=== PATIENT | male | born 1970 | race Caucasian/White ===

== ENCOUNTER 2024-12-31 14:01 | Outpatient (CLI) | payer MEDICAID, SELFPAY ==
--- NOTE | 2024-12-31 14:13 | XRR_ITS ---
PROCEDURE INFORMATION: Exam: XR Left Elbow Exam date and time: 12/31/2024 2:30 PM Age: 54 years old Clinical indication: Injury or trauma; Other: Bumped elbow; Blunt trauma (contusions or hematomas); Left; Injury details: Bumed posterior side of elbow and swelling; Additional info: Pain in left elbow TECHNIQUE: Imaging protocol: Radiologic exam of the left elbow. Views: 3 or more views. COMPARISON: No relevant prior studies available. FINDINGS: Bones/joints: No acute fracture or dislocation. Spurring along the olecranon process. Soft tissues: Normal. XR/XR elbow LT min 3V* [id number] IMPRESSION: No acute osseous findings.
== END 2024-12-31 14:02 | disposition home or self-care (01) ==
PROVIDERS: PCP Nurse Practitioner Family; Visit Provider Nurse Practitioner Family
DX: M25.522 Pain in left elbow (principal); M77.8 Other enthesopathies, not elsewhere classified
CPT/HCPCS: 73080

== ENCOUNTER → 2025-01-24 14:56 | Outpatient (BNVA) | payer MEDICAID, SELFPAY | PROVIDERS: PCP Nurse Practitioner Family; Visit Provider Orthopaedic Surgery | DX: M25.522 Pain in left elbow (principal); M70.22 Olecranon bursitis, left elbow; F90.9 Attention-deficit hyperactivity disorder, unspecified type; F98.8 Other specified behavioral and emotional disorders with onset usually occurring in childhood and adolescence | CPT/HCPCS: 73080 ==

== ENCOUNTER 2025-04-03 12:14 | Outpatient (CLI) | payer MEDICAID, SELFPAY ==
--- NOTE | 2025-04-03 12:24 | XRR_ITS ---
PROCEDURE INFORMATION: Exam: XR Lumbosacral Spine Exam date and time: 04/03/2025 12:48 PM Age: 54 years old Clinical indication: Low back pain; Additional info: Chronic back pain TECHNIQUE: Imaging protocol: Radiologic exam of the lumbosacral spine. Views: 6 or more views. Including flexion and extension views. COMPARISON: CR XR hip BI m 5V wo/w pel* [id number] 04/03/2025 12:48 PM FINDINGS: Bones/joints: There is degenerative disc disease along with vertebral body spurring noted at the L5-S1 level(s).With flexion and extension there is no evidence of significant instability. No acute fracture or subluxation noted. Soft tissues: Unremarkable. XR/XR lumbar spine 6V w f/e [id number] IMPRESSION: 1. No acute findings. 2. Degenerative disc disease at L5-S1
--- NOTE | 2025-04-03 12:24 | XRR_ITS ---
PROCEDURE INFORMATION: Exam: XR Bilateral Hips Exam date and time: 04/03/2025 12:48 PM Age: 54 years old Clinical indication: Hip pain; Bilateral; Additional info: Bilateral hip pain TECHNIQUE: Imaging protocol: Radiologic exam of the bilateral hips. Views: 2 views of hips with pelvis when performed. COMPARISON: CR XR lumbar spine 6V w f/e [id number] 04/03/2025 12:48 PM FINDINGS: Bones/joints: Unremarkable. No acute fracture. Soft tissues: Unremarkable. XR/XR hip BI m 5V wo/w pel* [id number] IMPRESSION: No acute findings.
== END 2025-04-03 12:15 | disposition home or self-care (01) ==
PROVIDERS: PCP Nurse Practitioner Family; Visit Provider Nurse Practitioner Family
DX: M51.379 Other intervertebral disc degeneration, lumbosacral region without mention of lumbar back pain or lower extremity pain (principal); M25.552 Pain in left hip; M25.551 Pain in right hip
CPT/HCPCS: 72114; 73523

== ENCOUNTER 2025-04-29 08:27 | Day surgery (SDC) | payer MEDICAID, SELFPAY ==
[2025-04-29] VITALS (10 sets, daily range): BP systolic 95–144; BP diastolic 69–113; PULSE 73–88; RESP 10–20; TEMP 36.3–36.6; O2SAT 91–95; BMI 38.7
--- NOTE | 2025-04-29 09:41 | P.HPUD_ITS ---
Surgery/Procedure H&P Update DATE OF PROCEDURE: April 29, 2025 DATE H&P PERFORMED: 04/23/25 H&P UPDATE INFORMATION: I have reviewed H&P completed within last 30 days, I have examined patient prior to procedure, No changes to prior documentation, H&P is in [facility] EMR on date indicated and Risks and benefits of the procedure reviewed PLANNED PROCEDURE: Operation Date: 04/29/25 10:05 Proposed Procedures p Benign Excision Subq Lesion RIGHT Upper Chest 32007 D17.9(Right) - Benjie Britt MD
--- NOTE | 2025-04-29 10:08 | ANES.PREANE2 ---
Pre-Anesthetic Assessment Height/Weight: Height 1.78 m Weight 122.47 kg Temp Pulse Resp BP Pulse Ox O2 Del Method 97.8 F 83 16 144/113 93 Room Air 04/29/25 08:42 04/29/25 08:42 04/29/25 08:42 04/29/25 08:42 04/29/25 08:42 04/29/25 08:42 Operation Date: 04/29/25 10:05 Proposed Procedures p Benign Excision Subq Lesion RIGHT Upper Chest 92161 D17.9(Right) - Benjie Britt MD Familial anesthetic complications: None Was Beta Manohar taken within 24 hours: N/A Was Clonidine taken within 24 hours: N/A Last intake: Intake Last Liquid Date 04/28/25 Last Liquid Time 19:00 Last Solid Date 04/28/25 Last Solid Time 22:30 Social Tobacco and No alcohol Exam alert, oriented x 3, clear to auscultation bilaterally and regular rate & rhythm Airway Mallampati: Class IV Dentition: other (extremely poor dentition) Metabolic Hyperlipidemia and Morbid Obesity Anesthetic Plan ASA status: 2 Anesthesia: Choice Risk of > 500 ml blood loss (7ml/kg in children): No Medications/Allergies Home Medications ?Medication ?Instructions ?Recorded ?Confirmed ?Last Taken ?Type atorvastatin 10 mg tablet 10 mg PO DAILY 04/23/25 04/29/25 04/27/25 History Allergies Allergy/AdvReac Type Severity Reaction Status Date / Time No Known Allergies Allergy Unverified 04/29/25 08:38 Current Medications Generic Name Dose Route Start Last Admin Trade Name Freq PRN Reason Stop Dose Admin Sodium Chloride 1,000 mls @ 30 mls/hr 04/29/25 08:45 04/29/25 08:51 Sodium Chloride 0.9% IV 04/30/25 08:44 30 mls/hr .Q24H ISSA Administration PFSH Anesthesia Family History Mother Diabetes Father Atrial fibrillation Grandmother Stroke Social History Smoking and tobacco/nicotine status: current every day tobacco/nicotine user
[2025-04-29] MEDS: ceFAZolin 2,000 mg SDV 2000 MG IVP (11:28)
[2025-04-29] MEDS: BUPivacaine 0.25% INJ 30 mL INJECTION (11:39)
[2025-04-29] MEDS: lidocaine-epi 1% 20 mL INJ INJECTION (11:39)
--- NOTE | 2025-04-29 11:57 | PM.OP ---
Operative Report Date of procedure: April 29, 2025 Pre-op diagnosis: Subcutaneous lesion of the right upper chest Post-op diagnosis: Same Post-op findings: 3 x 2 x 1 cm subcutaneous lesion of the right upper chest. Procedure done: Excision of subcutaneous lesion of the right upper chest Surgeon: Benjie Britt MD Brief History: This a 54-year-old male who presents to my office e with a subcutaneous lesion over the right upper chest for evaluation for excision. After discussion we will reason benefits as documented in my preop note we decided to proceed. Procedure: Patient was brought into the OR, he was placed in a supine position. General anesthesia was given. The upper chest was prepped and draped in usual sterile fashion. Timeout was conducted. Local anesthesia was infiltrated around the lesion. I then used a 15 blade to make elliptical incision overlying the area of the lesion, upon immediate entry to the subcutaneous tissue was able to identify the capsule of the lesion with appears to be a cystic structure, I circumferentially dissected the lesion from the surrounding tissue using the 15 blade, the lesion was completely excised and sent to pathology. Hemostasis was achieved in the wound and the wound was then irrigated and closed in layers using #3 Vicryl for the subcutaneous tissue #4 Monocryl for the skin. Dermabond was applied. At the end of the procedure all counts are correct the patient tolerated well the procedure and was transferred to the PACU in stable condition
--- NOTE | 2025-04-29 13:15 | ANE.PACU2 ---
Inpatient post-anesthesia follow up: Airway intact: Yes Vital signs: Temperature 97.4 F Pulse Rate 73 Respiratory Rate 17 Blood Pressure 110/75 Pulse Oximetry 93 Oxygen Delivery Me thod Room Air Oxygen Flow Rate 10 Fraction of Inspir ed Oxygen Hydration adequate: Yes Nausea and vomiting: No Pain level: 1 Mental status: Baseline
== END 2025-04-29 13:15 | disposition home or self-care (01) ==
PROVIDERS: PCP Nurse Practitioner Family; Visit Provider Surgery
PROC: (CPT 21552; principal; 2025-04-29 09:55)
DX: L98.8 Other specified disorders of the skin and subcutaneous tissue (principal); E78.5 Hyperlipidemia, unspecified; E66.01 Morbid (severe) obesity due to excess calories; Z68.38 Body mass index [BMI] 38.0-38.9, adult; F17.200 Nicotine dependence, unspecified, uncomplicated
CPT/HCPCS: 21552; 88304; J0690; J2250; J2405; J2704; J3010; J3490; J7030; J9999